=== PATIENT | male | born 2000 | race Caucasian/White ===

== ENCOUNTER 2020-11-19 14:42 | Emergency (ER) | payer OTHER ==
[~2020-11-19] VITALS: Ht 172.7 cm; Wt 72.6 kg
[2020-11-19 14:47] VITALS: BP 147/82
[2020-11-19] MEDS: IBUPROFEN 600 MG TAB PO ONE (15:13)
[2020-11-19] MEDS ORDERED: IBUP-2213 PO (15:54)
[2020-11-19 16:02] VITALS: BP 147/82
== END 2020-11-19 16:02 | disposition home or self-care (01) ==
LOC: MED 14:42
DX: J02.8 Acute pharyngitis due to other specified organisms (principal); B97.89 Other viral agents as the cause of diseases classified elsewhere; Z79.899 Other long term (current) drug therapy
CPT/HCPCS: 87081; 99283